=== PATIENT | male | born 1955 | race Caucasian/White ===

== ENCOUNTER 2022-11-24 11:59 | Observation (INO) | payer MEDICARE, BC, SELFPAY ==
[2022-11-24 12:23] VITALS: BP 167/76; PULSE 105; RESP 22; TEMP 38.1; O2SAT 95; BMI 28.6
--- NOTE | 2022-11-24 12:52 | ED_ITS ---
HPI - General Adult General Time Seen by Provider: 12:52 Date Seen: 11/24/22 Chief complaint: Fever Stated complaint: Chills, former burning in feet Time Seen by Provider: 11/24/22 12:51 Source: patient and RN notes reviewed Mode of arrival: ambulatory Limitations: no limitations History of Present Illness HPI narrative: This 67-year-old male is coming into the ER with concern of possible Keflex reaction. He went to urgent care in [place] yesterday. He had a toe lesion on his left 2nd toe. It is unclear how long it has been there on talking to him. They prescribed him Keflex because of his penicillin allergy yesterday. He took 1 dose this morning. After that while he was at work, started feeling chilled and cold. He went home and actually got into bed he was so chilled and cold. Denies any significant pain of this toe. Is not aware that the toe was draining at all. He states he is diabetic but is diet controlled, has not had to be on any medicines. Temperature at home I believe was around 99. On arrival here it is 100.5? F. denies any history of ulceration in his feet or legs. No swelling of his legs. Is not aware of any history of any MRSA. Does not sound like he is had problems with cellulitis before. He talks about the last 6 weeks where in certain shoes at work his toes will burn on both feet, when he is out of though shoes they improve. He does not give me any history of any burning type sensation or any discomfort in his toes at night. Did discuss Tylenol or ibuprofen dosing for his fever here, he would prefer ibuprofen. Related Data Home Medications Medication Instructions Recorded Confirmed levothyroxine 50 mcg tablet mcg 11/24/22 lisinopril 20 mg tablet mg 11/24/22 Allergies Allergy/AdvReac Type Severity Reaction Status Date / Time Penicillins Allergy Verified 11/24/22 12:22 Review of Systems Status of ROS: Reports: 10 or more systems reviewed and unremarkable except as noted in History and below PFSH PFSH Social History Smoking Status: Never smoker Do you use any of these nicotine containing products: None Second hand tobacco smoke exposure: No How often do you have a drink containing alcohol: 4 or more times a week How many standard drinks containing alcohol do you have on a typical day: 1 or 2 How often do you have six or more drinks on one occasion: Never AUDIT-C Alcohol total score: 4 Non-prescribed substance use: denies use service: No Exam Const: Vital Signs, click to edit/add: Vital Signs - 24 hr 11/24/22 12:23 11/24/22 14:00 11/24/22 15:46 Temperature 100.5 F H 98.1 F 99.1 F Pulse Rate [Pulse Oximeter] 105 H 83 Respiratory Rate 22 20 Blood Pressure [Ri ght Upper Arm] 167/76 H 143/89 H Pulse Oximetry 95 96 Oxygen Delivery Me thod Room Air Room Air Documenting provider has reviewed patient's vital signs: yes Common normals: no apparent distress, average body habitus, oriented x3, no limitations, healthy appearing, alert and well nourished General appearance: cooperative, comfortable, well kempt and well developed HENMT: Common normals: normocephalic, head/scalp atraumatic, hearing grossly normal bilaterally and external ears normal Head and scalp: normocephalic and atraumatic External ear: external ears normal Eye: Common normals: PERRL, EOMs intact bilaterally, conjunctivae normal and no scleral icterus Conjunctiva: conjunctiva(e) normal Pupil: PERRL Neck & C-Spine: Common normals: full ROM, no lymphadenopathy, supple, no meningeal signs, no JVD and thyroid normal Thyroid: thyroid normal Resp: Common normals: normal respiratory effort, no retractions, no use of accessory muscles and clear to auscultation bilaterally Auscultation: clear to auscultation bilaterally Cardio: Common normals: no JVD, regular rhythm, S1 normal heart sound, S2 normal heart sound, no gallops, no clicks and no murmurs Rate: tachycardic (Mildly) Rhythm: regular rhythm Heart sounds: S1 normal and S2 normal GI: Common normals: Normal to inspection, nondistended, normoactive bowel sounds present, soft to palpation, non-tender, no hepatosplenomegaly and no masses Palpation: soft and no hepatosplenomegaly Extremity: Other: No lower extremity edema. The end in the pad of his left 2nd toe has some whitish change on the periphery, eschar and macerated/ulcerated area on the pad itself, no drainage. Neuro: Common normals: oriented x3 Sensorium/orientation: alert Meningeal signs: no meningeal signs Psych: Appearance: well kempt Course Reevaluation(s) Reevaluation #1: Did review UpToDate recommendations for IV antibiotics with in affected diabetic toe/lower extremity ulcers. Have already placed him on vancomycin for MRSA coverage. Plan is to initiate Primaxin with this. Time: 17:19 Consultations Consultation #1: Have spoken with Dr. Caraballo regarding this patient. I am concerned about this toe, the wound does not look healthy at all. Do worry about underlying osteomyelitis even with a negative plain x-ray. Will get an EKG as he still remains tachycardic despite his fever resolving. He clinically is well. I favor IV antibiotics and a more rigorous course with him. Have reviewed with he and his prior to talking to the hospitalist my concerned that his toe could be a risk for amputation. His glucose was 230 and have reviewed that with him. He states there were lots of sweets and treats it Bradley. Is unclear how l olive this toe wound has really been there. I think we need to cover for MRSA despite his negative prior history. He cannot tell me if there has been any drainage but he seems relatively overall unaware of this wound. Will order the vancomycin. As reviewed with Dr. Caraballo, Primaxin or 1 of the meropenem class type drugs could be considered. Will initiate vancomycin at this time. Time: 15:49 Vital Signs Vital signs: Initial Vital Signs Temperature 100.5 F H 11/24/22 12:23 Temperature Source Temporal Artery Scan 11/24/22 12:23 Pulse Rate 105 H 11/24/22 12:23 Pulse Rhythm 11/24/22 12:23 Respiratory Rate 22 11/24/22 12:23 Blood Pressure 167/76 H 11/24/22 12:23 Blood Pressure Mean 106 11/24/22 12:23 Blood Pressure Position Sitting 11/24/22 12:23 Pulse Oximetry 95 11/24/22 12:23 Oxygen Delivery Method 11/24/22 12:23 Vital Signs Temperature 100.5 F H 11/24/22 12:23 Pulse Rate 105 H 11/24/22 12:23 Respiratory Rate 22 11/24/22 12:23 Blood Pressure 167/76 H 11/24/22 12:23 Pulse Oximetry 95 11/24/22 12:23 Oxygen Delivery Method 11/24/22 12:23 Temperature 99.1 F 11/24/22 15:46 Pulse Rate 83 11/24/22 15:46 Respiratory Rate 20 11/24/22 15:46 Blood Pressure 143/89 H 11/24/22 15:46 Pulse Oximetry 96 11/24/22 15:46 Oxygen Delivery Method 11/24/22 15:46 Medical Decision Making MDM Narrative Medical decision making narrative: Reviewed with patient that I am certainly concerned about this toe being infected. Given the current climb into of the viruses circulating, do think we need to think about secondary alternative infections. Will do the triple viral swab as well. He has a low-grade fever. He has only taken 1 dose of Keflex. Reviewed with him I do not think that his symptoms are from reaction to Keflex rather than uncontrolled infection without antibiotics. One dose of Keflex would not be adequate coverage. Looking at his toe, do worry about osteomyelitis. We will get imaging with chest x-rays he states he has maybe had a bit of cough for while. Will also do plain films of his toe. Did review with them that sometimes MRI needs to be done if there really is concern of osteomyelitis. He is febrile, mildly tachycardic with the fever. Will see her response to ibuprofen. Will do blood cultures on him. Lab Data Lab results reviewed: Yes I reviewed the patient's lab results Labs: Lab Results 11/24/22 11/24/22 11/24/22 Range/Units 13:20 13:20 13:20 WBC 10.81 (4.50-11.00) K/uL RBC 4.76 (4.30-5.90) m/uL Hgb 14.7 (13.5-17.5) gm/dL Hct 43.4 (37.0-53.0) % MCV 91 (80-100) fL MCH 31 (26-34) pg MCHC 34 (32-36) gm/dL RDW Coeff of Domenica 11.8 (11.5-15.5) % Plt Count 205 (140-440) K/uL Neut % (Auto) 82.0 H (42.0-72.0) % Lymph % (Auto) 9.0 L (20-44) % Guthrie % (Auto) 8.7 (0.0-11.0) % Eos % (Auto) 0.0 (0.0-7.0) % Baso % (Auto) 0.2 (0.0-3.0) % Neut # (Auto) 8.90 H (1.7-7.0) K/uL Lymph # (Auto) 1.00 (0.90-2.90) K/uL Guthrie # (Auto) 0.90 (0.00-0.90) K/UL Eos # (Auto) 0.00 (0.00-0.50) K/uL Baso # (Auto) 0.02 (0.00-0.30) K/uL ESR 7 (2-15) mm/hr Sodium 137 (135-149) mmol/L Potassium 4.4 (3.6-5.1) mmol/L Chloride 106 (96-114) mmol/L Carbon Dioxide 23 (20-32) mmol/L BUN 24 (7-30) mg/dL Creatinine 1.2 (0.5-1.5) mg/dL Estimated Creat Clear 67.51 Estimated GFR 66 ml/min Glucose 231 H (60-115) mg/dL Lactate (0.5-1.9) mmol/L Calcium 9.5 (8.4-10.6) mg/dL Total Bilirubin 0.6 (0.1-1.5) mg/dL AST 24 (12-35) U/L ALT 26 (4-50) U/L Alkaline Phosphatase 71 (40-150) U/L C-Reactive Protein 2.7 H (0.5-1.0) mg/dL Total Protein 7.5 (6.0-8.3) g/dL Albumin 4.6 (3.3-5.0) g/dL SARS-CoV-2 (PCR) (Negative) Influenza Type A (PCR) (Negative) Influenza Type B (PCR) (Negative) RSV (PCR) (Negative) 11/24/22 11/24/22 Range/Units 13:20 13:20 WBC (4.50-11.00) K/uL RBC (4.30-5.90) m/uL Hgb (13.5-17.5) gm/dL Hct (37.0-53.0) % MCV (80-100) fL MCH (26-34) pg MCHC (32-36) gm/dL RDW Coeff of Domenica (11.5-15.5) % Plt Count (140-440) K/uL Neut % (Auto) (42.0-72.0) % Lymph % (Auto) (20-44) % Guthrie % (Auto) (0.0-11.0) % Eos % (Auto) (0.0-7.0) % Baso % (Auto) (0.0-3.0) % Neut # (Auto) (1.7-7.0) K/uL Lymph # (Auto) (0.90-2.90) K/uL Guthrie # (Auto) (0.00-0.90) K/UL Eos # (Auto) (0.00-0.50) K/uL Baso # (Auto) (0.00-0.30) K/uL ESR (2-15) mm/hr Sodium (135-149) mmol/L Potassium (3.6-5.1) mmol/L Chloride (96-114) mmol/L Carbon Dioxide (20-32) mmol/L BUN (7-30) mg/dL Creatinine (0.5-1.5) mg/dL Estimated Creat Clear Estimated GFR ml/min Glucose (60-115) mg/dL Lactate 1.5 (0.5-1.9) mmol/L Calcium (8.4-10.6) mg/dL Total Bilirubin (0.1-1.5) mg/dL AST (12-35) U/L ALT (4-50) U/L Alkaline Phosphatase (40-150) U/L C-Reactive Protein (0.5-1.0) mg/dL Total Protein (6.0-8.3) g/dL Albumin (3.3-5.0) g/dL SARS-CoV-2 (PCR) Negative SARS-CoV-2 (Negative) Influenza Type A (PCR) Negative PCR FLU A (Negative) Influenza Type B (PCR) Negative PCR FLU B (Negative) RSV (PCR) Negative PCR RSV (Negative) Imaging Data Chest x-ray: Attestation: I have reviewed the pertinent imaging results. My impression: I see no acute pathology on my preliminary review. Radiologist's impression: Patient: SAURAV NICK Facility:[facility] Patient ID:?[id number] Site Patient ID:?[id number]. Site :?[id number] Study:?XRay Chest PORTABLE-11/24/2022 1:32:59 PM Ordering Physician:?Imani Abbott Final Report: INDICATION: COUGH, FEVER TECHNIQUE: Chest 1 view. COMPARISON: None. FINDINGS: Cardiovascular and mediastinum: Heart size and vasculature are normal in caliber and appearance. Mediastinum is within normal limits. Lungs and pleural space: Lungs are clear. No sign of infiltrate or mass. No sign of pleural effusion. No pneumothorax. Bones and soft tissues: No significant findings. IMPRESSION: Unremarkable chest. Dictated by: Woody Vela MD @ 11/24/2022 15:02:59 (Electronic Signature) Left 2nd toe x-ray: Attestation: I have reviewed the pertinent imaging results. My impression: No acute evidence of osteomyelitis on my preliminary review. Radiologist's impression: Patient: SAURAV NICK Facility:?[facility] Patient ID:?[id number] Site Patient ID:?[id number] Site :?[id number] Study:?XRay Extremity Left 2ND TOE 3V-11/24/2022 1:32:42 PM Ordering Physician:?Imani Abbott Final Report: INDICATION: Ulcer, infection TECHNIQUE: Three-view 2nd toe left foot COMPARISON: None FINDINGS: Bones: Alignment is normal. No fractures or bone lesions. Joint spaces: Unremarkable. Soft tissues: Possible soft tissue wound adjacent to the distal tuft 2nd digit. IMPRESSION: Possible soft tissue wound adjacent to the distal tuft 2nd digit. No definitive evidence for osteomyelitis. Dictated by Woody Vela MD @ 11/24/2022 3:05:51 PM Dictated by: Woody Vela MD @ 11/24/2022 15:05:55 (Electronic Signature) ECG Data Attestation: I personally reviewed and interpreted this ECG as follows: (EKG timed 1553 shows normal sinus rhythm, 80 beats per minute. No ischemia, no acute abnormalities.) Prior ECG tracings: not available for review Critical Care Time Critical Care Time Critical Care Time: No Discharge Plan Discharge Clinical Impression: Cellulitis, Diabetic toe ulcer Patient Disposition: Admitted As Inpatient Condition: Unchanged
--- NOTE | 2022-11-24 13:01 | CRLHL7_ITS ---
For Patients: As a result of the Cures Act, medical imaging exams and procedure reports are released immediately into your electronic medical record. You may view this report before your referring provider. If you have questions, please contact your health care provider. INDICATION: Ulcer, infection TECHNIQUE: Three-view 2nd toe left foot COMPARISON: None FINDINGS: Bones: Alignment is normal. No fractures or bone lesions. Joint spaces: Unremarkable. Soft tissues: Possible soft tissue wound adjacent to the distal tuft 2nd digit. IMPRESSION: Possible soft tissue wound adjacent to the distal tuft 2nd digit. No definitive evidence for osteomyelitis. Dictated by Woody Vela MD @ 11/24/2022 3:05:51 PM Dictated by: Woody Vela MD @ 11/24/2022 15:05:55 (Electronically Signed)
--- NOTE | 2022-11-24 13:02 | CRLHL7_ITS ---
For Patients: As a result of the Cures Act, medical imaging exams and procedure reports are released immediately into your electronic medical record. You may view this report before your referring provider. If you have questions, please contact your health care provider. INDICATION: COUGH, FEVER TECHNIQUE: Chest 1 view. COMPARISON: None. FINDINGS: Cardiovascular and mediastinum: Heart size and vasculature are normal in caliber and appearance. Mediastinum is within normal limits. Lungs and pleural space: Lungs are clear. No sign of infiltrate or mass. No sign of pleural effusion. No pneumothorax. Bones and soft tissues: No significant findings. IMPRESSION: Unremarkable chest. Dictated by: Woody Vela MD @ 11/24/2022 15:02:59 (Electronically Signed)
[2022-11-24 13:28] LABS: Basophils Absolute Auto 0.02 K/uL (0.00-0.30); Basophils Percent Auto 0.2 % (0.0-3.0); Hematocrit 43.4 % (37.0-53.0); Hemoglobin* 14.7 gm/dL (13.5-17.5); Immature Granulocytes Abs Auto 0.01 K/uL (0.00-0.30); Immature Granulocytes Pct Auto 0.1 %; Mean Corpuscular HGB Conc 34 gm/dL (32-36); Mean Corpuscular Hemoglobin 31 pg (26-34); Mean Corpuscular Volume 91 fL (80-100); Monocytes Percent Auto 8.7 % (0.0-11.0); Platelet Count* 205 K/uL (140-440); RDW Coefficient of Variation % 11.8 % (11.5-15.5); Red Blood Count 4.76 m/uL (4.30-5.90); White Blood Count* 10.81 K/uL (4.50-11.00)
[2022-11-24 13:29] LABS: Lactate* 1.5 mmol/L (0.5-1.9); Slide Review Reflex No
[2022-11-24 13:45] LABS: Chloride* 106 mmol/L (96-114)
[2022-11-24 13:46] LABS: Albumin* 4.6 g/dL (3.3-5.0); Potassium* 4.4 mmol/L (3.6-5.1); Sodium* 137 mmol/L (135-149)
[2022-11-24 13:48] LABS: Creatinine* 1.2 mg/dL (0.5-1.5); Est. Creatinine Clearance* 67.51; Estimated Glomerular Filt Rate 66 ml/min
[2022-11-24 13:49] LABS: Alanine Aminotransferase* 26 U/L (4-50); Alkaline Phosphatase* 71 U/L (40-150); Aspartate Amino Transferase* 24 U/L (12-35); Bilirubin Total* 0.6 mg/dL (0.1-1.5); Blood Urea Nitrogen* 24 mg/dL (7-30); Carbon Dioxide* 23 mmol/L (20-32); Total Protein* 7.5 g/dL (6.0-8.3)
[2022-11-24 13:50] LABS: Calcium* 9.5 mg/dL (8.4-10.6); Glucose* 231 mg/dL (60-115)
[2022-11-24 13:52] LABS: C Reactive Protein* 2.7 mg/dL (0.5-1.0)
[2022-11-24 14:00] VITALS: TEMP 36.7
[2022-11-24] MEDS: IBUPROFEN 200 MG TABLET 400 MG PO (14:00)
[2022-11-24 14:08] LABS: PCR FLU A Negative PCR FLU A (Negative); PCR FLU B Negative PCR FLU B (Negative); PCR RSV Negative PCR RSV (Negative)
[2022-11-24 14:12] LABS: Erythrocyte SedimentationRate* 7 mm/hr (2-15)
[2022-11-24 14:13] LABS: SARS PCR* Negative SARS-CoV-2 (Negative)
[2022-11-24 15:46] VITALS: BP 143/89; PULSE 83; RESP 20; TEMP 37.3; O2SAT 96
[2022-11-24 17:36] VITALS: BP 164/94; PULSE 73; RESP 18; TEMP 36.8; O2SAT 99; BMI 29.2
--- NOTE | 2022-11-24 17:51 | ED.NURSE ---
report was called to britney calix to 260 via w/c.
[2022-11-24 18:16] LABS: Hemoglobin A1C* 7.56 % (0-5.6)
[2022-11-24] MEDS: 0.9 % SODIUM CHLORIDE 250 ml IV (18:36)
--- NOTE | 2022-11-24 19:36 | PM.IMHP1 ---
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 He got a new pair of steel-toed boots about a month ago in after about 2 weeks of wearing them at work a notice that they were smelling really bad. About a week ago he was soaking his feet and he noticed a large dark callus on the tip of his left 2nd toe. Yesterday he started having pain in this toe and notice that it looked different: Swollen and red. He went to urgent care in [place] and was prescribed Keflex. He has an allergy to penicillin, but does not know what the reaction was. He took the 1st dose of Keflex this morning and about an hour and a half later while he was at work he started to feel cold, chilled, and achy. He took his temperature and it was elevated at 99? F. He presented to the emergency department thinking he had had an allergic reaction to Keflex. In the ER his temperature was 100.5? F. He has a history of diabetes which he says is diet controlled. Many years ago he tried an oral medication for diabetes but states that it gave him too many low blood sugars and so he discontinued it. Since then he has tried to control his diabetes with only his diet. In July his hemoglobin A1c was elevated which he attributed to too much Halloween candy. He tells me that his sugar today was likely high because he was eating too many [place] sweets. He was hesitant to start anything oral or insulin for diabetes. His was in the room and helped convince him to start something to control his blood sugars while he also tries to get his diet under control again. Review of Systems Status of ROS: Reports: 10 or more systems reviewed and unremarkable except as noted in History and below [facility] Medical History (Updated 11/24/22 @ 20:57 by Margot Caraballo MD) Diabetes mellitus type 2, diet-controlled Hypertension Surgical History (Updated 11/24/22 @ 18:59 by Margot Caraballo MD) H/O colonoscopy H/O hernia repair History of open reduction and internal fixation (ORIF) procedure Family History (Updated 11/24/22 @ 19:00 by Margot Caraballo MD) Mother Myelodysplasia (myelodysplastic syndrome) Social History (Updated 11/24/22 @ 19:37 by Margot Caraballo MD) Narrative: Never smoker. Chewed tobacco, quit >15 years ago. 1 shot marta nightly. Denies recreational drug use. FULL CODE. Highest level of school completed/degree received: high school graduate Smoking Status: Never smoker Do you use any of these nicotine containing products: None Second hand tobacco smoke exposure: No How often do you have a drink containing alcohol: 4 or more times a week Alcohol type: hard liquor How many standard drinks containing alcohol do you have on a typical day: 1 or 2 How often do you have six or more drinks on one occasion: Never AUDIT-C Alcohol total score: 4 Non-prescribed substance use: denies use Caffeine: Yes service: No Meds Home Medications and Allergies Home Medications Medication Instructions Recorded Confirmed Type aspirin 81 mg tablet,delayed 81 mg PO DAILY 11/24/22 11/24/22 History release cephalexin 500 mg capsule 500 mg PO QID 11/24/22 11/24/22 History ibuprofen 200 mg capsule 200 mg PO Q4-6H PRN 11/24/22 11/24/22 History levothyroxine 50 mcg tablet 50 mcg PO DAILY 11/24/22 11/24/22 History lisinopril 20 mg tablet 20 mg PO DAILY 11/24/22 11/24/22 History multivitamin (Daily Vitamin 1 tab PO DAILY 11/24/22 11/24/22 History Formula tablet) Allergies Allergy/AdvReac Type Severity Reaction Status Date / Time Penicillins Allergy Verified 11/24/22 12:22 Exam Narrative: Exam Narrative: General: No acute distress. Awake alert oriented x3. HEENT: Normocephalic atraumatic, pupils equally round and reactive to light and accommodation. Oropharynx clear. Mucous membranes are moist. No cervical lymphadenopathy, thyromegaly or carotid bruits. No JVD. Cardiovascular: Regular rate and rhythm. No murmurs, gallops, or rubs. Chest: No increased work of breathing. Clear to auscultation bilaterally. No crackles or wheezes. Abdomen: Bowel sounds present. Soft, nondistended, nontender. No hepatosplenomegaly or masses. Extremities: Dorsalis pedis and posterior tibial pulses are 2+ bilaterally. Good capillary refill on all toes with the exception of the left 2nd toe which has a large callus. No edema, no cyanosis or clubbing. Plantar surfaces of both feet have large calluses. Fallen arch on the right foot. Left 2nd toe has a callus over the distal quarter of the toe with a central area that is ulcerated, but has fresh friable tissue. Mild erythema and swelling proximal to the callus, especially on the superior portion of the toe. No purulent drainage noted. No fluctuance. Some tenderness to palpation. This distal ulcer is superficial and does not extend to the bone. Skin: As above No jaundice, no pallor, no other rashes. Neuro: Grossly intact. No focal deficits. Const: Vital Signs, click to edit/add: Vital Signs - 24 hr 11/24/22 12:23 11/24/22 14:00 11/24/22 15:46 Temperature 100.5 F H 98.1 F 99.1 F Pulse Rate [Left P ulse Oximeter] Pulse Rate [Pulse Oximeter] 105 H 83 Respiratory Rate 22 20 Blood Pressure [Le ft Arm] Blood Pressure [Ri ght Upper Arm] 167/76 H 143/89 H Pulse Oximetry 95 96 Oxygen Delivery Me thod Room Air Room Air 11/24/22 17:36 Temperature 98.3 F Pulse Rate [Left P ulse Oximeter] 73 Pulse Rate [Pulse Oximeter] Respiratory Rate 18 Blood Pressure [Le ft Arm] 164/94 H Blood Pressure [Ri ght Upper Arm] Pulse Oximetry 99 Oxygen Delivery Me thod Room Air Hospitalist - H&P: Result Labs Labs: Short CBC 11/24/22 Range/Units 13:20 WBC 10.81 (4.50-11.00) K/uL Hgb 14.7 (13.5-17.5) gm/dL Hct 43.4 (37.0-53.0) % Plt Count 205 (140-440) K/uL BMP 11/24/22 13:20 Sodium 137 Potassium 4.4 Chloride 106 Carbon Dioxide 23 BUN 24 Creatinine 1.2 Glucose 231 H Calcium 9.5 Liver Function 11/24/22 Range/Units 13:20 Total Bilirubin 0.6 (0.1-1.5) mg/dL AST 24 (12-35) U/L ALT 26 (4-50) U/L Alkaline Phosphatase 71 (40-150) U/L Albumin 4.6 (3.3-5.0) g/dL Ordering Physician: Milena Diallo M.D. Date of Service: 11/24/22 Procedure(s): XR 2nd toe LT Accession Number(s): [id number] cc: Provider,Not a Local ; Milena Diallo M.D.~ For Patients: As a result of the Cures Act, medical imaging exams and procedure reports are released immediately into your electronic medical record. You may view this report before your referring provider. If you have questions, please contact your health care provider. INDICATION: Ulcer, infection TECHNIQUE: Three-view 2nd toe left foot COMPARISON: None FINDINGS: Bones: Alignment is normal. No fractures or bone lesions. Joint spaces: Unremarkable. Soft tissues: Possible soft tissue wound adjacent to the distal tuft 2nd digit. IMPRESSION: Possible soft tissue wound adjacent to the distal tuft 2nd digit. No definitive evidence for osteomyelitis. Dictated by Woody Vela MD @ 11/24/2022 3:05:51 PM Dictated by: Woody Vela MD @ 11/24/2022 15:05:55 (Electronically Signed) Ordering Physician: Milena Diallo M.D. Date of Service: 11/24/22 Procedure(s): XR chest 1V portable Accession Number(s): [id number] cc: Provider,Not a Local ; Milena Diallo M.D.~ For Patients: As a result of the s Act, medical imaging exams and procedure reports are released immediately into your electronic medical record. You may view this report before your referring provider. If you have questions, please contact your health care provider. INDICATION: COUGH, FEVER TECHNIQUE: Chest 1 view. COMPARISON: None. FINDINGS: Cardiovascular and mediastinum: Heart size and vasculature are normal in caliber and appearance. Mediastinum is within normal limits. Lungs and pleural space: Lungs are clear. No sign of infiltrate or mass. No sign of pleural effusion. No pneumothorax. Bones and soft tissues: No significant findings. IMPRESSION: Unremarkable chest. Dictated by: Woody Vela MD @ 11/24/2022 15:02:59 (Electronically Signed) 11/24/2022 3:53 p.m. EKG: Normal sinus rhythm, 80 beats per minute. Normal EKG. Assessment and Plan Assessment and plan (1) Diabetic toe ulcer: Problem comment: - tip of left second toe Status: Acute (2) Cellulitis: Status: Acute (3) Diabetes mellitus type 2, diet-controlled: Problem comment: - elevated HgbA1C in Jul 2022 - 11/24/22 HgbA1C 7.56% Status: Chronic (4) Hypertension: Status: Acute Plan 67-year-old male with previously diet-controlled diabetes that has become uncontrolled over the last 3-6 months and he has has developed ulceration and a diabetic infection of the distal portion of the left 2nd toe. Admit for observation. I do not think patient failed a trial of outpatient Keflex because he only took 1 dose and then presented for concerns of a reaction. He was started on vancomycin and imipenem in the emergency department for concerns of possible MRSA or Pseudomonas infection. I will continue these overnight. He has been mildly febrile, and was mildly tachycardic when he 1st came in indicating sepsis, but this is not severe, and those symptoms have already improved. If he does well overnight, consideration could be given to changing him over to oral antibiotics for discharge home. I contacted Dr. Osborn from podiatry, but he is out of town for the week and will be back on Tuesday. If this patient does well overnight, he could be set up for an outpatient visit with Dr. Osborn as he will likely need some debridement of the distal portion of the toe. From my examination and review of the x-ray results, I am not concerned for osteomyelitis at this time. It appears that he has excellent blood supply and will likely do well if it can be debrided and we can get his blood sugars under control. He may need some time off work to keep his foot out of the steel toed boots and to by a different pair. For diabetes he has agreed to allow me to start metformin and an insulin sliding scale. He and I agreed that he would go home with metformin, but not the insulin sliding scale. He desires to try a diabetic diet but agrees to take metformin while he is getting his diet under control. We discussed the potential GI side effects of metformin.
[2022-11-24] MEDS: SODIUM CHLORIDE 0.9 % (FLUSH) 10 ML SYRINGE 5 ML IVF (22:26)
[2022-11-24 23:00] VITALS: BP 145/97; PULSE 73; RESP 18; TEMP 36.3; O2SAT 94
--- NOTE | 2022-11-24 23:09 | PC.NURSE ---
Admission note: Pt admitted to the unit at 1730 on a W/C accompanied by and a staff member from ED. A/O and Bp was 164/94 on arrival. Assessment done and denied any pain, fever and chills. Pt is pleasant and cooperative with care, able to make needs known. Pt is independent in room. Due treatment given.
[2022-11-25 03:00] VITALS: BP 150/88; PULSE 68; RESP 16; TEMP 36.2; O2SAT 99
--- NOTE | 2022-11-25 05:08 | PC.NURSE ---
[id number] Pt slept during night, denies pain, up independently in room, tolerating activity well.
[2022-11-25 07:00] VITALS: BP 149/90; PULSE 75; RESP 18; TEMP 37.2; O2SAT 97
[2022-11-25 07:01] LABS: Basophils Absolute Auto 0.03 K/uL (0.00-0.30); Basophils Percent Auto 0.5 % (0.0-3.0); Eosinophils Absolute Auto 0.07 K/uL (0.00-0.50); Eosinophils Percent Auto 1.1 % (0.0-7.0); Hematocrit 42.7 % (37.0-53.0); Hemoglobin* 14.4 gm/dL (13.5-17.5); Mean Corpuscular HGB Conc 34 gm/dL (32-36); Mean Corpuscular Hemoglobin 31 pg (26-34); Mean Corpuscular Volume 92 fL (80-100); Neutrophils Absolute Auto 3.91 K/uL (1.7-7.0); Neutrophils Percent Auto 63.4 % (42.0-72.0); Platelet Count* 184 K/uL (140-440); RDW Coefficient of Variation % 11.9 % (11.5-15.5); Red Blood Count 4.62 m/uL (4.30-5.90); White Blood Count* 6.17 K/uL (4.50-11.00)
[2022-11-25 07:22] LABS: C Reactive Protein* 3.2 mg/dL (0.5-1.0); Slide Review Reflex No
[2022-11-25] MEDS: METFORMIN 500 MG TABLET PO (09:43)
[2022-11-25] MEDS: lisinopriL 20 MG TABLET PO (09:44)
[2022-11-25] MEDS: MULTIVITAMIN/MINERALS 1 TABLET 1 TAB PO (09:44)
[2022-11-25] MEDS: LEVOTHYROXINE 50 MCG TABLET PO (09:44)
[2022-11-25] MEDS: ASPIRIN 81 MG TABLET EC PO (09:44)
--- NOTE | 2022-11-25 11:13 | NUTR.NU ---
RDN with MD consult for Diabetic teaching. Patient admitted for Cellulitis, found to have an A1C (11/24/22) of 7.56%. This is not a new diagnosis of Diabetes. RDN visited with patient and (Gina, designated caregiver) whom agreed to diet education related to diabetes. Diabetic diet education provided. Discussed basics of carbohydrate counting including sources of carbohydrates, serving sizes, and label reading. Discussed using the plate method for carbohydrate-controlled, balanced meals that include ? plate non-starchy vegetables, ? plate protein, and 3-4 servings of carbohydrates per meal (fruit, whole grains, legumes, milk, yogurt) and 1-2 per snack. Handouts provided to support discussion. RDN contact information provided and encouraged patient to call with questions. RDN also encouraged patient to visit with RDN in a clinic setting as an outpatient via primary MD. RDN to follow up as needed.
--- NOTE | 2022-11-25 17:26 | PC.NURSE ---
Please see eMar for meds provided to this patient. BG 153 covered with 1 unit Novolog insulin. Eval by Dr. Aguilar. Pt and his Gina verbalized understanding of d/c diagnosis, home meds, pain management plan, f/up appt with Dr. Sy and specialist Dr. Osborn for callus on right 2nd toe. Reviewed sx of infection and sx to report urgently to physician. 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
--- NOTE | 2022-11-25 18:38 | PM.DS1 ---
DS: Providers Provider Date Seen: 11/25/22 Date of admission: 11/24/22 16:53 Primary care physician: Tiago yS MD Admitting Clinician: Margot Caraballo MD Consults: 11/25/22 10:05 Consult to Nutrition [CONS] Routine Comment: Reason for consult:: Diabetic Teaching Attending Physician on discharge[facility] Date [facility] Discharge: 11/25/22 DS: Diagnosis Discharge Diagnosis (1) Diabetic toe ulcer: Status: Acute Problem details: Received broad-spectrum IV antibiotics well he was admitted. Discharged on Levaquin. Will see Podiatry next week. May need to have that callus removed. (2) Diabetes mellitus type 2, diet-controlled: Status: Chronic Problem details: -met with dietitian today. Discharging on metformin. Outpatient Education and blood glucose monitoring discussed. - 11/24/22 HgbA1C 7.56% (3) Hypertension: Status: Acute Problem details: Continue home meds DS: Summary Hospital Course Hospital Course: HOSPITALIST DISCHARGE SUMMARY ATTENDING PHYSICIAN: Mavis Aguilar MD FINAL DIAGNOSIS: Type 2 diabetes -non insulin requiring Second toe right foot, distal phalanx callus with superficial infection. HOSPITAL FOLLOWUP ISSUES: Podiatry - wound care PCP/dietitian - diabetes management REFERRALS WHILE ADMITTED: Dietitian REFERRALS AFTER DISCHARGE: Podiatry, dietitian BRIEF HOSPITAL COURSE: SUBSTANTIVE NOTATIONS ON IMAGING, LAB, MICROBIOLOGY/PATHOLOGY STUDIES: WBC was not elevated Chemistries normal A1c 7.5 No osteomyelitis Received 2 doses of imipenem/cilastatin Received 1 dose of vancomycin DISCHARGE MEDICATIONS: See Reconciled list - SIGNIFICANT CHANGES: REVIEW OF SYSTEMS No new chest pain or dyspnea Pain controlled No voiding difficulties Tolerating diet challenge PHYSICAL EXAM: CONSTITUTIONAL: Conversational, insightful VITAL SIGNS: see record. HEENT: Normocephalic, atraumatic. PERRL, EOMI, conjunctivae pink, no scleral icterus. Ears and nose externally normal. Pharynx normal. NECK: No JVD. No carotid bruit, no thyromegaly, no adenopathy. CHEST: Clear to auscultation bilaterally. HEART: S1 and S2 normal. Edema ABDOMEN: Soft, nontender. Normal bowel sounds. MUSCULOSKELETAL: Right foot: 2nd toe: Distal phalanx: Crusted callus with minimal purulent discharge NEURO: Cranial nerves intact. Grossly intact. No asymmetric findings. SKIN: No rashes, petechiae, concerning changes PSYCHIATRIC: Mood euthymic. DISPOSITION: Home with Time spent on discharge 37 minutes. Status at Discharge Functional status at discharge: independent ambulation Overall status at discharge: patient is back to baseline Time Spent with Patient Time attestation: Total time spent providing and/or coordinating discharge services: Time spent: Greater than 30 minutes Exam Const: Vital Signs, click to edit/add: Vital Signs - 24 hr 11/24/22 23:00 11/25/22 03:00 11/25/22 07:00 Temperature 97.4 F L 97.1 F L 98.9 F Pulse Rate [Left P ulse Oximeter] 73 68 75 Respiratory Rate 18 16 18 Blood Pressure [Le ft Arm] 145/97 H 150/88 H 149/90 H Pulse Oximetry 94 99 97 Oxygen Delivery Me thod Room Air Room Air Room Air DS: Data Data Completed and Pending Labs on day of discharge: Labs from last 24 hours 11/25/22 11/25/22 06:39 06:39 WBC 6.17 RBC 4.62 Hgb 14.4 Hct 42.7 MCV 92 MCH 31 MCHC 34 RDW Coeff of [place]omenica 11.9 Plt Count 184 Neut % (Auto) 63.4 Lymph % (Auto) 19.0 L Baker % (Auto) 16.0 H Eos % (Auto) 1.1 Baso % (Auto) 0.5 Neut # (Auto) 3.91 Lymph # (Auto) 1.20 Baker # (Auto) 1.00 H Eos # (Auto) 0.07 Baso # (Auto) 0.03 C-Reactive Protein 3.2 H Preliminary micro results at discharge 11/24/22 13:35 Blood Culture - Preliminary Blood NO GROWTH AFTER 24 HOURS 11/24/22 13:20 Blood Culture - Preliminary Blood NO GROWTH AFTER 24 HOURS Discharge Plan Discharge Disposition: Home, Self-Care Date of Admission: 11/24/22 16:53 Attending Provider on Discharge: Mavis Aguilar Primary Care Provider: Tiago Sy Condition: Unchanged Anticipated Discharge Date/Time: 11/25/22 10:09 Discharge Medications: New levofloxacin 500 mg tablet 500 mg PO DAILY Qty: 10 0RF (DME) Test Strips Misc See Rx Instructions .Route Qty: 1 0RF Rx Instructions: As directed (DME) blood-glucose meter Misc See Rx Instructions .Route Qty: 1 0RF Rx Instructions: As directed (DME) lancets-blood glucose strips 30 gauge combo pack See Rx Instructions .Route Qty: 200 0RF Rx Instructions: As directed metformin 500 mg Tablet 500 mg PO BIDWM Qty: 60 0RF Continued lisinopril 20 mg tablet 20 mg PO DAILY Label Comments: TAKE ONE TABLET BY MOUTH ONCE DAILY levothyroxine 50 mcg tablet 50 mcg PO DAILY Label Comments: TAKE ONE TABLET BY MOUTH ONCE DAILY aspirin 81 mg tablet,delayed release (DR/EC) 81 mg PO DAILY multivitamin [Daily Vitamin Formula] Tablet 1 tab PO DAILY ibuprofen 200 mg capsule 200 mg PO Q4-6H PRN Discontinued cephalexin 500 mg capsule 500 mg PO QID Discharge Orders: Discharge Order (Routine); Ordered 11/25/22 Ordered By: Mavis Aguilar Patient Education: Metformin (By mouth), Levofloxacin (By mouth), Cellulitis (GEN) Activity Level: Activity as Tolerated Discharge Diet: Diabetic Follow Up Appointments: Tiago Sy MD [Primary Care Provider] - 12/03/22 9:45 am (Ask primary for nutrition consult) Jason Osborn DPM [Staff Physician] - 12/02/22 (1 week - diabetic foot ulcer. Dr. Osborn is going to contact you for appointment) Forms: [facility] Instructions Discharge Comments: pick a PCP at clinic - primary clinic for him to see in 2 weeks. Nutrition (diabetic education) in the next month for education.
== END 2022-11-25 12:30 | disposition home or self-care (01) ==
LOC: ED 13:20 → MEDSURG 16:53
PROVIDERS: Admitting Provider Family Medicine; Emergency Provider Family Medicine; PCP Family Medicine; Visit Provider Family Medicine
DX: L03.90 Cellulitis, unspecified (principal); L97.529 Non-pressure chronic ulcer of other part of left foot with unspecified severity; E11.621 Type 2 diabetes mellitus with foot ulcer; I10 Essential (primary) hypertension; Z79.82 Long term (current) use of aspirin; T36.0X5A Adverse effect of penicillins, initial encounter; R00.0 Tachycardia, unspecified; R50.9 Fever, unspecified; M79.675 Pain in left toe(s); T36.1X5A Adverse effect of cephalosporins and other beta-lactam antibiotics, initial encounter
CPT/HCPCS: 36415; 71045; 73660; 80053; 82962; 83036; 83605; 85025; 85651; 86140; 87040; 87502; 87634; 87635; 93005; 96365; 96366; 96372; 96375; 96376; 99284; 99285; A9153; A9270; G0378; J0743; J3370; J7050; J7120

== ENCOUNTER 2024-06-26 09:56 | Outpatient (CLI) | payer MEDICARE, BC, SELFPAY | END 2024-06-26 09:57 | disposition home or self-care (01) | PROVIDERS: PCP Family Medicine; Visit Provider Family Medicine | DX: Z00.00 Encounter for general adult medical examination without abnormal findings (principal); E03.9 Hypothyroidism, unspecified; I10 Essential (primary) hypertension; E11.9 Type 2 diabetes mellitus without complications; Z13.6 Encounter for screening for cardiovascular disorders; Z13.0 Encounter for screening for diseases of the blood and blood-forming organs and certain disorders involving the immune mechanism | CPT/HCPCS: 80048; 80061; 84443 ==

== ENCOUNTER 2025-08-05 08:48 | Outpatient (CLI) | payer MEDICARE, BC, SELFPAY | END 2025-08-05 08:49 | disposition home or self-care (01) | PROVIDERS: PCP Family Medicine; Visit Provider Family Medicine | DX: E11.9 Type 2 diabetes mellitus without complications (principal); Z12.5 Encounter for screening for malignant neoplasm of prostate; Z13.21 Encounter for screening for nutritional disorder | CPT/HCPCS: 80048; 80061; 82607; G0103 ==